=== PATIENT | male | born 2000 ===

== ENCOUNTER 2022-01-24 11:04 | Emergency (ER) | payer SELFPAY ==
[~2022-01-24] VITALS: Ht 170.2 cm; Wt 50.0 kg
[~2022-01-24 11:04] MED LIST: ALBUTEROL0.83 MG/ML IH; MIRALAX PA17 GM/Dose PO; NO HOME MEDICATIONS; VENTOLIN0.09 MG IH; ZANTAC 7575 MG PO
[2022-01-24 11:31] VITALS: BP 108/64; TEMP 97.9
[2022-01-24] MEDS ORDERED: INVEGA1.5 MG PO (11:48)
[2022-01-24] MEDS ORDERED: ATIVAN 0.50.5 MG/TAB PO (11:49)
[2022-01-24] MEDS ORDERED: PAIN PATCH (11:50)
[2022-01-24] MEDS ORDERED: MUSCLE RELAXER (11:50)
[2022-01-24 12:07] LABS: BASO # 0.1 K/mm3 (0.0-0.2); BASO % 0.6 % (0.0-2.0); EOS # 0.1 K/mm3 (0.0-0.7); EOS % 0.7 % (0.0-4.0); GRAN # 12.3 K/mm3 (1.4-6.5); GRAN % 78.9 % (42.2-75.2); HEMATOCRIT 38.9 % (42.0-52.0); HEMOGLOBIN 13.4 g/dl (13.5-18.0); MEAN CELL VOLUME 90 fl (80.0-100.0); MEAN CORPUSCULAR HEMOGLOBIN 31 pg (27-31); MEAN CORPUSCULAR HGB CONC 34 g/dl (33.0-37.0); MEAN PLATELET VOLUME 9.6 fl (7.4-10.4); MONO % 6.5 % (1.7-9.3); PLATELET COUNT 423 K/mm3 (130-400); RED BLOOD COUNT 4.31 M/mm3 (4.20-5.60); REDCELL DISTRIBUTION WIDTH-CV 12.4 % (11.5-14.5)
[2022-01-24 12:27] LABS: ALBUMIN 3.4 gm/dL (3.5-5.0); BILIRUBIN,TOTAL 0.5 mg/dL (0.2-1.2); CALCIUM 9.2 mg/dL (8.4-10.2); CREATININE, serum 0.78 mg/dL (0.72-1.25); TOTAL PROTEIN 8.3 gm/dL (6.2-8.1)
[2022-01-24 12:52] LABS: COLLECTION METHOD CLEAN CATCH
[2022-01-24 13:06] LABS: MUCOUS Present (NOT PRESENT); PH 6 (5-8); SQUAMOUS EPITHELIAL 0-2 /hpf (0-10); URINE APPEARANCE Clear (CLEAR/HAZY); URINE BACTERIA None Seen /hpf (NONE SEEN); URINE BILIRUBIN Negative (NEGATIVE); URINE BLOOD Negative (NEGATIVE); URINE COLOR Yellow (YELLOW); URINE GLUCOSE Negative (NEGATIVE); URINE KETONE Negative (NEGATIVE); URINE LEUKOCYTE ESTERASE Negative (NEGATIVE); URINE NITRATE Negative (NEGATIVE); URINE PROTEIN(semi-quant) Negative (NEGATIVE); URINE UROBILINOGEN Negative (NEGATIVE)
[2022-01-24 13:08] LABS: URINE RBC None Seen /hpf (0-2)
[2022-01-24 15:03] VITALS: PULSE 88
== END 2022-01-24 15:04 | disposition home or self-care (01) ==
LOC: COL.ER 11:04
PROVIDERS: Nurse Practitioner Primary Care
DX: K92.1 Melena (principal)
CPT/HCPCS: Q9967